=== PATIENT | female | born 1975 | race Hispanic/Latino ===

== ENCOUNTER 2019-05-07 10:32 | Emergency (ER) | payer OTHER, SELFPAY ==
[2019-05-07] MEDS ORDERED: Ketorolac Tromethamine 30 MG/ML VIAL ONE (11:12)
[2019-05-07 11:43] LABS: Bilirubin Negative (Negative); Blood, Urine Negative (Negative); Clarity Clear (Clear); Glucose, Urine (Dipstick) Normal (Negative); Leukocyte 250 Leu/uL (Negative); Nitrite Negative (Negative); Protein, Urine (Dipstick) 20 mg/dL (Neg-Trace); Urobilinogen Normal mg/dL (Less than 2); WBC/HPF 21-50 HPF (0-3)
[2019-05-07 11:45] LABS: Pregnancy Test - Urine (BHCG) Negative (Negative); Pregu Control Background? CLEAR/WHITE (CLR/WHITE); Pregu Control Bar Appear? YES (CONTROL BAR); Specific Gravity 1.031 (1.002-1.036)
[2019-05-07 11:48] LABS: BHCG - Serum Negative (NEGATIVE); Pregs Control Background? CLEAR/WHITE (CLR/WHITE); Pregs Control Bar Appear? YES (CONTROL BAR)
[2019-05-07 11:50] LABS: Bacteria/HPF 2+ HPF (None Seen)
[2019-05-07 11:52] LABS: Hemoglobin 12.1 g/dL (12.0-16.0); Mean Corpuscular HGB CONC 34.9 g/dL (32.0-36.0); Mean Corpuscular Hemoglobin 32.8 pg (27.0-31.0); Mean Corpuscular Volume 94.1 fL (78.0-98.0); Mean Platelet Volume 7.9 fL (7.4-10.4); Platelet Count 186 thou/uL (130-400); RBC Distribution Width 16.2 % (11.5-14.5); Red Blood Cell (RBC) Count 3.69 mill/uL (4.20-5.40); White Blood Cell (WBC) Count 5.1 thou/uL (4.8-10.8)
--- NOTE | 2019-05-07 12:11 | CT ---
Exam: Abdomen CT without contrast Pelvic CT without contrast HISTORY: Abdominal pain, x4 days COMPARISON: 04/17/2016 FINDINGS: Abdomen CT: Lung bases:Clear Heart size: Normal heart size. No significant pericardial fluid Aorta: Normal caliber. No perinephric fat stranding Solid organs: Grossly unremarkable. Limited evaluation due to lack of IV contrast Lymph nodes: No gastrohepatic, retrocrural or periportal lymphadenopathy Gallbladder: Unremarkable Mesentery: No mass, lymphadenopathy, free air or free fluid Kidneys: Bilaterally, no hydronephrosis, nephrolithiasis or perinephric fat stranding. Bilateral uret ers have a normal caliber. No hydroureter, periureteral fat stranding or ureterolithiasis. Alimentary canal: Limited evaluation due to technique. No evidence of bowel obstruction. Normal calib er appendix. Scattered fecal material in a nondistended, nondilated colon. Diverticulosis, without evidence of diverticulitis. Mucosal prominence of the sigmoid colon likely due to inadequate distenti on CT PELVIS: No mass, adenopathy, free air or free fluid. Uterus is unremarkable. There are ill-defined hypodensi ties in the left and right adnexa which may be associated with the ovaries likely representing dominant follicles measuring 2.3 on the right and 1.3 on the left. Consider pelvic ultrasound if clin ically warranted. Urinary bladder: Unremarkable. Osseous structures: No lytic or blastic lesions IMPRESSION: 1. No evidence of nephrolithiasis or obstructive uropathy 2. Normal caliber appendix. Diverticulosis. No evidence of diverticulitis 3. Mucosal prominence of the sigmoid colon, likely due to inadequate distention 4. Left and right adnexal hypodensities as above. Consider pelvic MRI if clinically warranted.
[2019-05-07 12:12] LABS: ALT (SGPT) Less than 7 U/L (8-55); AST (SGOT) 13 U/L (5-34); Alkaline Phosphatase 92 U/L (40-150); Anion Gap 12 mmol/L (10-20); BUN (Urea Nitrogen) 11 mg/dL (7.0-18.7); Bilirubin, Total 1.5 mg/dL (0.2-1.2); Calc. Creatinine Clearance 0 mL/min (70-130); Calcium 9.5 mg/dL (7.8-10.44); Carbon Dioxide 25 mmol/L (22-29); Chloride 105 mmol/L (98-107); Estimated GFR-MDRD Greater than 90; Globulin 3.1 g/dL (2.4-3.5); Glucose 99 mg/dL (70-105); Lipase 9 U/L (8-78); Potassium 3.9 mmol/L (3.5-5.1); Protein, Total 7.1 g/dL (6.0-8.3); Sodium 138 mmol/L (136-145)
[2019-05-07 12:15] LABS: Band 5 % (5-11); Eosinophils 2 % (0-10); Lymphocytes 54 % (21-51); MDiff Complete? YES; Monocytes 8 % (0-10); Neutrophil 20 % (42-75); Reactive Lymphocytes 11 % (0-10)
== END 2019-05-07 13:17 | disposition home or self-care (01) ==
LOC: ERS 10:32
DX: N30.00 Acute cystitis without hematuria (principal); I10 Essential (primary) hypertension; E78.00 Pure hypercholesterolemia, unspecified; E78.5 Hyperlipidemia, unspecified; F41.9 Anxiety disorder, unspecified; F32.9 Major depressive disorder, single episode, unspecified; F17.210 Nicotine dependence, cigarettes, uncomplicated
CPT/HCPCS: 74176; 80053; 81003; 81015; 81025; 83690; 84703; 85025; 96361; 96374; J1885

== ENCOUNTER 2019-06-12 09:31 | Emergency (ER) | payer SELFPAY ==
[2019-06-12] MEDS ORDERED: Ketorolac Tromethamine 30 MG/ML VIAL ONE (11:34)
[2019-06-12] MEDS ORDERED: Lidocaine 1% (PF) 30 ML VIAL ONE (11:34)
[2019-06-12] MEDS ORDERED: CEFAZOLIN 1 GM VIAL ONE ×2 (11:34→11:36)
[2019-06-12 11:54] LABS: Hemoglobin 9.1 g/dL (12.0-16.0); Mean Corpuscular HGB CONC 34.5 g/dL (32.0-36.0); Mean Corpuscular Hemoglobin 31.1 pg (27.0-31.0); Mean Corpuscular Volume 89.9 fL (78.0-98.0); Mean Platelet Volume 7.5 fL (7.4-10.4); Platelet Count 200 thou/uL (130-400); RBC Distribution Width 17.7 % (11.5-14.5); Red Blood Cell (RBC) Count 2.94 mill/uL (4.20-5.40); White Blood Cell (WBC) Count 5.4 thou/uL (4.8-10.8)
[2019-06-12 12:03] LABS: ALT (SGPT) 7 U/L (8-55); AST (SGOT) 16 U/L (5-34); Albumin 3.5 g/dL (3.5-5.0); Alkaline Phosphatase 81 U/L (40-110); Anion Gap 12 mmol/L (10-20); BUN (Urea Nitrogen) 12 mg/dL (7.0-18.7); Bilirubin, Total 1.4 mg/dL (0.2-1.2); Calc. Creatinine Clearance 0 mL/min (70-130); Calcium 8.8 mg/dL (7.8-10.44); Carbon Dioxide 23 mmol/L (22-29); Chloride 103 mmol/L (98-107); Estimated GFR-MDRD Greater than 90; Globulin 3.4 g/dL (2.4-3.5); Glucose 99 mg/dL (70-105); Potassium 3.7 mmol/L (3.5-5.1); Protein, Total 6.9 g/dL (6.0-8.3); Sodium 134 mmol/L (136-145)
[2019-06-12 12:11] LABS: Band 20 % (5-11); Eosinophils 2 % (0-10); Lymphocytes 58 % (21-51); MDiff Complete? YES; Monocytes 1 % (0-10); Neutrophil 18 % (42-75); Platelet Morphology Comment Appears Adequate; Polychromasia SLIGHT = 2-3 cells (100X) (0-2/hpf); Reactive Lymphocytes 1 % (0-10)
[2019-06-12] MEDS ORDERED: Morphine 4 MG/ML VIAL ONE (12:37)
== END 2019-06-12 17:10 | disposition home or self-care (01) ==
LOC: ERS 09:31
DX: L02.11 Cutaneous abscess of neck (principal); J45.909 Unspecified asthma, uncomplicated; E78.5 Hyperlipidemia, unspecified; E78.00 Pure hypercholesterolemia, unspecified; I10 Essential (primary) hypertension; F41.9 Anxiety disorder, unspecified; F32.9 Major depressive disorder, single episode, unspecified; F17.210 Nicotine dependence, cigarettes, uncomplicated
CPT/HCPCS: 10060; 36415; 80053; 85025; J0690; J1885; J2001; J2270

== ENCOUNTER 2019-06-16 15:06 | Observation (INO) | payer SELFPAY ==
[2019-06-16 16:31] LABS: Reticulocyte Count 4.3 % (0.5-1.5)
[2019-06-16 16:39] LABS: Iron 29 ug/dL (50-170); Iron Binding Capacity, Total 205 mcg/dL (265-497)
[2019-06-16 17:02] LABS: CKMB 1.4 ng/mL (0-6.6)
--- NOTE | 2019-06-16 17:07 | CT ---
CT BRAIN PERFORMED WITHOUT CONTRAST ENHANCEMENT: History: Symptomatic anemia, generalized weakness and syncope. FINDINGS: The ventricular and cisternal system is within normal limits. There are no signs of intracerebral hem orrhage or extraaxial fluid collections. The mastoid air cells and visualized sinuses are clear. IMPRESSION: No acute intracranial abnormalities. POS: [facility]
[2019-06-16] MEDS ORDERED: Acetaminophen 500 MG TAB ONE (19:29)
[2019-06-16] MEDS ORDERED: Senokot S 8.6-50 MG TAB PO PRN (19:31)
[2019-06-16] MEDS ORDERED: Sodium Chloride 0.9% 1,000 ML IV SCH (19:45)
[2019-06-16 20:01] LABS: Troponin I 0.053 ng/mL (< 0.028)
[2019-06-16 20:26] VITALS: BMI 41.1
[2019-06-16] MEDS: Nicotine 14 MG PATCH TD SCH (21:00)
[2019-06-16] MEDS ORDERED: Famotidine 20 MG TAB PO SCH (21:00)
[2019-06-16] MEDS: Pantoprazole 40 MG VIAL IVP SCH (21:00)
--- NOTE | 2019-06-16 21:24 | HP ---
PRIMARY CARE PHYSICIAN: None. CHIEF COMPLAINT: Wound evaluation. HISTORY OF PRESENT ILLNESS: Ms. Newton is a very pleasant 43-year-old female, who reported to the emergency room today in [place] for evaluation of wounds related to abscesses that she had looked at in the emergency room 4 days ago. She had one on the right posterior neck and one on the right anterior thigh. The one under neck had an I and D, and she was given antibiotics and sent home. She reports she has had a cough, fever, headache since the I and D procedure, and her family brought her back in for evaluation. The wound on her neck is healing nicely, and the wound on her thigh looks more of an ulceration and an abscess. While she was in [place], she was about to be discharged home when the ER physician did some routine blood work and found that her hemoglobin had dropped from 12.1 on 05/07/2019 to today when it was 8.0. She was also occult positive on the rectal exam, so she was sent over to [facility] for further evaluation and admission for symptomatic anemia. The ER doctor here han troponin, which was in the indeterminate range. The patient does report some dizziness, lightheadedness, and body aches. She was afebrile while here in the emergency room. The patient will be admitted to the floor for further workup for the anemia, elevated troponin, possible GI bleed. The patient recently returned from a bus trip to [place]. She was on the bus about 8 days total. REVIEW OF SYSTEMS: The patient reports fatigue. Reports fever at home. Reports weakness. Reports dizziness. Reports cough, headache. Reports body aches. All other systems are reviewed and are negative unless mentioned in the HPI. The patient denies GI bleeding. Denies melena. Reports that she did have a small amount of bright red blood when she wiped after bowel movement several days ago. She reports that she struggles with constipation and often struggles. PAST MEDICAL HISTORY: Pertinent for GERD, asthma, hepatomegaly, hyperlipidemia, hypertension. PAST SURGICAL HISTORY: Uterine ablation in 2013, right knee surgery. PSYCHIATRIC HISTORY: Anxiety, depression. SOCIAL HISTORY: Drinks socially every week. Denies drug use. Does smoke about a pack a day. FAMILY HISTORY: Cardiac disease on both sides of her family. ALLERGIES: NONE. CURRENT MEDICATIONS: None. PHYSICAL EXAMINATION: VITAL SIGNS: Blood pressure 126/71, pulse is 85, respirations 18, temperature is 99.6, and pO2 saturations are 97% on room air. CONSTITUTIONAL: The patient is alert and oriented to person, place, and time. She is in no apparent distress. HEENT: Head is atraumatic and normocephalic. Eyes; eyelids normal to inspection. Pupils are equally round and reactive to light. ENT; mouth exam is normal. Mucous membranes are moist. NECK: Normal range of motion. Trachea is midline. RESPIRATORY: Breath sounds are clear. Chest movement is symmetrical. CARDIOVASCULAR: Regular heart rate and rhythm. Heart sounds are normal. ABDOMEN: Nontender. Bowel sounds are heard. BACK: Normal range of motion. No CVA tenderness. Upper extremity, normal range of motion, radial pulses are normal. Lower extremity includes 1 cm ulceration to the right inner thigh. Normal range of motion. Motor strength is normal. Sensation intact. Pedal pulses are normal. NEUROLOGIC: The patient is oriented to person, place, and time. Speech is normal. SKIN: Warm, dry, normal in color. PSYCH: She is oriented to person, place, and time. Has a normal affect. DIAGNOSTIC DATA: EKG, normal sinus rhythm, beats per minute 78, ST segments normal, T-waves are normal. ASSESSMENT AND PLAN: 1. Anemia. The patient has had a 3-point drop in her hemoglobin in the last month. Guaiac was positive for blood in [place]. We will do serial hemoglobin and hematocrit. Add some Protonix b.i.d. Ask GI to consult. Iron and ferritin levels have been drawn. We will keep the patient n.p.o. after midnight. 2. Elevated troponin. We will trend. 3. Cough, fever, headache. We will order a flu test. 4. Healing abscesses with a skin ulceration on the right leg. The patient was given Rocephin and vancomycin at [place]. We will continue the Rocephin and we will titrate to p.o. once tolerated and these both appear to be healing. 5. Smoking cessation. Counseling has been given. 6. Gastrointestinal and deep venous thrombosis prophylaxis have been started. 7. Hospital course is dependent on clinical findings. Job ID: [id number]
[2019-06-16] MEDS: traMADol HCl 50 MG TAB PO PRN (21:27)
[2019-06-16 22:12] LABS: Hemoglobin 7.9 g/dL (12.0-16.0)
[2019-06-17] MEDS: Acetaminophen 325 MG TAB PO PRN ×2 (03:36→13:43)
[2019-06-17 04:38] LABS: ALT (SGPT) 7 U/L (8-55); AST (SGOT) 17 U/L (5-34); Albumin 3.1 g/dL (3.5-5.0); Alkaline Phosphatase 65 U/L (40-110); Anion Gap 11 mmol/L (10-20); BUN (Urea Nitrogen) 8 mg/dL (7.0-18.7); Bilirubin, Total 1.2 mg/dL (0.2-1.2); Calc. Creatinine Clearance 245 mL/min (70-130); Calcium 8.8 mg/dL (7.8-10.44); Carbon Dioxide 25 mmol/L (22-29); Chloride 104 mmol/L (98-107); Estimated GFR-MDRD Greater than 90; Globulin 3.2 g/dL (2.4-3.5); Glucose 87 mg/dL (70-105); Potassium 3.8 mmol/L (3.5-5.1); Protein, Total 6.3 g/dL (6.0-8.3); Sodium 136 mmol/L (136-145)
[2019-06-17 04:56] LABS: Band 5 % (5-11); Hemoglobin 8.1 g/dL (12.0-16.0); Lymphocytes 52 % (21-51); MDiff Complete? YES; Mean Corpuscular HGB CONC 34.4 g/dL (32.0-36.0); Mean Corpuscular Hemoglobin 31.1 pg (27.0-31.0); Mean Corpuscular Volume 90.4 fL (78.0-98.0); Mean Platelet Volume 7.6 fL (7.4-10.4); Monocytes 4 % (0-10); Neutrophil 39 % (42-75); Platelet Count 174 thou/uL (130-400); RBC Distribution Width 17.1 % (11.5-14.5); Red Blood Cell (RBC) Count 2.61 mill/uL (4.20-5.40); White Blood Cell (WBC) Count 3.6 thou/uL (4.8-10.8)
[2019-06-17] MEDS: Pantoprazole 40 MG VIAL IVP SCH ×2 (08:29→20:11)
[2019-06-17] MEDS: traMADol HCl 50 MG TAB PO PRN ×2 (08:37→13:43)
[2019-06-17] MEDS ORDERED: Enoxaparin Sodium 40 MG/0.4 ML SYRINGE SC SCH (09:00)
[2019-06-17] MEDS: cefTRIAXone\\ROCEPHIN 1 GM in Sodium Chloride 0.9% 100 ML IVPB SCH (13:43)
--- NOTE | 2019-06-17 13:45 | PDOC.HOSPP ---
- Subjective Encounter Date: 06/17/19 Encounter Time: 10:30 Subjective: no chest pain or sob no active bleeding now - Objective Vital Signs & Weight: Vital Signs (12 hours) Temp Pulse Pulse Pulse Resp BP BP 06/17/19 12:00 89 18 06/17/19 11:57 98 89 123/73 121/54 L 06/17/19 08:00 98.5 F 86 18 06/17/19 03:42 98.5 F 88 18 BP BP Pulse Ox 06/17/19 12:00 121/54 L 96 06/17/19 11:57 06/17/19 08:00 133/60 95 06/17/19 03:42 130/73 97 Weight Weight 247 lb I&O: 06/16/19 06/17/19 06/18/19 06:59 06:59 06:59 Intake Total 750 Output Total 800 Balance -50 Result Diagrams: 06/17/19 03:33 06/17/19 03:33 Hospitalist ROS - Medication Medications: Active Medications Generic Name Dose Route Start Last Admin Trade Name Judit PRN Reason Stop Dose Admin Acetaminophen 650 mg 06/16/19 19:25 06/17/19 03:36 Tylenol PO 650 mg Q6H PRN Administration Headache/Fever or Pain Nicotine 14 mg 06/16/19 21:00 06/16/19 21:00 Nicoderm Patch TD 14 mg Q24HR HOMERO Administration Pantoprazole Sodium 40 mg 06/16/19 21:00 06/17/19 08:29 Protonix IVP 40 mg Q12HR HOMERO Administration Tramadol HCl 50 mg 06/16/19 20:33 06/17/19 08:37 Ultram PO 50 mg Q4H PRN Administration Moderate Pain (4-6) - Exam General Appearance: NAD, awake alert Eye: PERRL, anicteric sclera ENT: no oropharyngeal lesions, moist mucosa Neck: supple, no JVD Heart: RRR, no murmur Respiratory: no wheezes, no rales Gastrointestinal: soft, non-tender, normal bowel sounds Extremities: no cyanosis, no edema Neurological: cranial nerve grossly intact, no focal deficits Psychiatric: normal affect, A&O x 3 Hosp A/P (1) Obesity Code(s): E66.9 - OBESITY, UNSPECIFIED Status: Acute (2) Acute blood loss anemia Code(s): D62 - ACUTE POSTHEMORRHAGIC ANEMIA Status: Acute (3) Dyslipidemia (high LDL; low HDL) Code(s): E78.4 - OTHER HYPERLIPIDEMIA * DO NOT USE * Status: Chronic (4) Essential hypertension Code(s): I10 - ESSENTIAL (PRIMARY) HYPERTENSION Status: Chronic - Plan has healing ulcer from prior abscess over thigh on protonix q12h for egd in am continue home meds when she is allowed to eat will f/u stress test in 08/2016 was +ve but pt refused cath then by , currently asymptomatic
--- NOTE | 2019-06-17 14:31 | CON ---
DATE OF CONSULTATION: 06/17/2019 REQUESTING PHYSICIAN: TRENTON Wyatt REASON FOR CONSULTATION: Anemia and heme-positive stool. HISTORY OF PRESENT ILLNESS: Vicki Newton is a 43-year-old woman with history of obesity, arthritis, asthma, and hypertension. She had a uterine ablation in 2013. She was admitted to the hospital yesterday with significant hemoglobin decline over the past month. Notably in recent weeks, she has been treated for multiple subcutaneous abscesses with incision and drainage and antibiotics. Labs drawn yesterday showed a significant decline over the past month from 12.1 to 8.0. She was subsequently transferred here from [place] for GI evaluation. FOBT was positive. The patient denies any abdominal pain, nausea, or vomiting. She will get intermittent mild constipation, but denies any issues with that at this time. Occasionally, she will have stools that are difficult to pass and will have a small amount of red blood in the stool, but this has not been going on very frequently. She has never undergone EGD or colonoscopy. NSAID use is rare. She denies any overt bleeding from anywhere, otherwise. No gross hematuria. No epistaxis. No melena. She was started here on Rocephin as well as Protonix 40 mg IV q.12 hours. REVIEW OF SYSTEMS: Full review of systems including constitutional, head, eyes, ears, nose, throat, GI, , cardiovascular, respiratory, musculoskeletal, and neurologic systems is negative except as noted in the HPI. PAST MEDICAL HISTORY: GERD, hypertension, hyperlipidemia, arthritis, asthma, obesity, depression and anxiety, uterine ablation in 2013, and right knee surgery. ALLERGIES: NO KNOWN DRUG ALLERGIES. OUTPATIENT MEDICATIONS: None. FAMILY HISTORY: Negative for GI malignancy. SOCIAL HISTORY: She smokes a pack of cigarettes per day. Alcohol use is social. PHYSICAL EXAMINATION: VITAL SIGNS: Temperature 98.5, pulse 86, blood pressure 133/60, and 95% oxygen saturation on room air. GENERAL: Obese 43-year-old woman sitting up in bed comfortably, in no distress. SKIN: No jaundice. No rashes were palpable. EYES: No scleral icterus. Extraocular movements intact. ENT: Mucous membranes moist. No oral lesions. LYMPH: No submandibular or supraclavicular lymphadenopathy. THYROID: Nontender to palpation. HEART: Regular rate and rhythm. LUNGS: Clear to auscultation bilaterally. ABDOMEN: Obese. Bowel sounds present. Soft, nontender to palpation. EXTREMITIES: No peripheral edema. VESSELS: Radial pulses 2+ bilaterally. NEURO: Cranial nerves II through XII intact bilaterally. No focal deficits. LABORATORY STUDIES: WBC 3.6; hemoglobin initially 7.9, currently stable at 8.1 without transfusion; platelets 174; MCV 90.4, reticulocytes elevated to 4.3. Sodium 136, potassium 3.8, BUN 8, creatinine 0.53, total bilirubin 1.2, alkaline phosphatase 65, AST 17, ALT 7, and albumin 3.1. INR 1.1. FOBT is positive. Flu swab negative. CK-MB normal at 1.4. Troponin 0.06. Ferritin 673, iron 29, TIBC 205, so overall iron studies are mixed. IMAGING STUDIES: Brain CT showed no acute processes. CT of the abdomen and pelvis from over a month ago on 05/07/2019 demonstrated some prominence in the area of the sigmoid colon, where this was felt to likely represent underdistention. There was diverticulosis. Normal-appearing appendix. ASSESSMENT AND PLAN: 1. Anemia, with hemoglobin declined from 12.1 to 8.0 over the past month, and no significant overt bleeding. 2. Heme-positive stool. 3. Rectal bleeding, intermittent, infrequent. The patient has certainly not had any overt bleeding to the degree that would explain her significant hemoglobin decline over the past month. Note, her iron studies are mixed and this is in the context of treatment with antibiotics for subcutaneous abscesses. Occult gastrointestinal bleeding lesion is certainly on the differential. I do recommend we proceed with esophagogastroduodenoscopy and colonoscopy for further evaluation. We will administer the bowel preparation this evening and plan for the procedure tomorrow. Thank you for the consultation. Please call anytime with questions or concerns. Job ID: [id number]
[2019-06-17] MEDS ORDERED: GoLYTELY 4,000 ml Bottle PO SCH (18:00)
[2019-06-17] MEDS: Nicotine 14 MG PATCH TD SCH (20:10)
[2019-06-18 07:36] LABS: INR-International Normal Ratio 1.1; PTT 31.9 SEC (22.9-36.1); Prothrombin Time 14.6 SEC (12.0-14.7)
[2019-06-18 07:51] LABS: Anion Gap 9 mmol/L (10-20); BUN (Urea Nitrogen) 6 mg/dL (7.0-18.7); Calc. Creatinine Clearance 236 mL/min (70-130); Calcium 8.9 mg/dL (7.8-10.44); Carbon Dioxide 29 mmol/L (22-29); Chloride 102 mmol/L (98-107); Estimated GFR-MDRD Greater than 90; Glucose 93 mg/dL (70-105); Potassium 3.6 mmol/L (3.5-5.1); Sodium 136 mmol/L (136-145)
[2019-06-18 08:25] LABS: Hemoglobin 7.8 g/dL (12.0-16.0); Mean Corpuscular HGB CONC 34.1 g/dL (32.0-36.0); Mean Corpuscular Hemoglobin 30.6 pg (27.0-31.0); Mean Corpuscular Volume 89.6 fL (78.0-98.0); Mean Platelet Volume 6.9 fL (7.4-10.4); Platelet Count 158 thou/uL (130-400); RBC Distribution Width 17.3 % (11.5-14.5); Red Blood Cell (RBC) Count 2.55 mill/uL (4.20-5.40); White Blood Cell (WBC) Count 3.5 thou/uL (4.8-10.8)
[2019-06-18 08:34] LABS: Band 8 % (5-11); Lymphocytes 67 % (21-51); MDiff Complete? YES; Monocytes 5 % (0-10); Neutrophil 20 % (42-75); Platelet Morphology Comment Appears Adequate; Polychromasia SLIGHT = 2-3 cells (100X) (0-2/hpf)
[2019-06-18] MEDS: Acetaminophen 325 MG TAB PO PRN (08:55)
[2019-06-18] MEDS: traMADol HCl 50 MG TAB PO PRN (08:55)
[2019-06-18] MEDS: Pantoprazole 40 MG VIAL IVP SCH (08:56)
[2019-06-18] MEDS ORDERED: Promethazine HCl 25 MG/ML VIAL SLOW IVP PRN (12:45)
[2019-06-18] MEDS ORDERED: Promethazine HCl 25 MG/ML VIAL IM PRN (12:45)
[2019-06-18] MEDS ORDERED: Ondansetron HCl/PF 4 MG/2 ML Vial IVP PRN (12:45)
[2019-06-18] MEDS ORDERED: Lidocaine 1% PF 5 ML VIAL ONE (15:29)
[2019-06-18] MEDS ORDERED: PROPOFOL 200 MG/20 ML VIAL ONE (15:29)
[2019-06-18 15:37] VITALS: TEMP 98
[2019-06-18] MEDS: cefTRIAXone\\ROCEPHIN 1 GM in Sodium Chloride 0.9% 100 ML IVPB SCH (15:47)
[2019-06-18 16:25] VITALS: BP 144/75
--- NOTE | 2019-06-18 19:07 | DIS ---
DATE OF ADMISSION: 06/16/2019 DATE OF DISCHARGE: 06/18/2019 DISCHARGE DISPOSITION: To home. PRIMARY DISCHARGE DIAGNOSES: Acute blood loss anemia, unclear etiology, likely source is menometrorrhagia. Upper and lower endoscopies have been negative for acute blood loss. SECONDARY DISCHARGE DIAGNOSES: Hypertension, dyslipidemia, obesity, healing ulcer over the thighs, resolving. PROCEDURES DONE DURING HOSPITALIZATION: CT brain done on the day of admission showed no acute abnormalities. This was done due to generalized weakness. Influenza A and B antigens were negative. Blood culture x1 is negative. Stool occult was positive. Hemoglobin and hematocrit on arrival were 8 and 24, platelet count 177, white count of 3.6, MCV 88, 67% lymphocytes and 20% neutrophils. Her previous hemoglobin and hematocrit were 12 and 34 on April 2019 with platelet count of 186. PT, INR, PTT within normal limits. Discharge BUN and creatinine 6 and 0.5, serum iron 29, TIBC 205, ferritin 673. Albumin is 3.1. DISCHARGE MEDICATIONS: 1. Ciprofloxacin 500 mg p.o. twice daily for another 5 days for her abscess/ ulcer over the thighs. 2. Protonix 40 mg p.o. daily. 3. Simvastatin 10 mg p.o. at bedtime. ALLERGIES: NO KNOWN DRUG ALLERGIES. DISCHARGE PLAN: The patient needs to find a primary care physician in the area and see in 1 week. She would also benefit from outpatient Heme-Onc consultation. BRIEF COURSE DURING HOSPITALIZATION: The patient initially got admitted on the with complaints of dizziness and generalized weakness. She was found to have had hemoglobin of 8 g, which had dropped from 12 in April of 2019. Stool occult was also positive. In view of this history, the patient was placed under observation on telemetry. She has had consultation with Dr. Fitz Lynn/dr. Stoll for Gastroenterology. She has had both upper and lower endoscopies done, which did not reveal any acute bleeding. She has had biopsies obtained from her stomach and duodenal area, which is pending at the time of discharge. The patient has reversal of neutrophil and lymphocyte on the differential count. Had a retic count of 4.3 with 1% recent nucleated red blood cells suggestive of possible bone marrow recovery. She has remained hemodynamically stable during her stay here, ambulating as well. DOUG with reflex is pending, which has been drawn today. This needs to be followed up with her primary care physician in the outpatient setting. The patient has been advised to search and find a primary care physician in the area to follow up in 1 week with the blood counts and likely she will need outpatient consultation with boot trimmer/oncologist. She also needs outpatient consultation with her OB/ [employer] in view of irregular periods with prior uterine ablation done for menorrhagia. She gave a history of heavy bleeding for 2 days with clots and her cycle being irregular sometimes 2, sometimes lasting 4 months in between cycles. She is currently hemodynamically stable and will be discharged for further outpatient workup. Job ID: [id number] [facility] SYSTEM[facility]ie
--- NOTE | 2019-06-19 08:48 | OP ---
DATE OF PROCEDURE: 06/18/2019 PROCEDURES PERFORMED: EGD and colonoscopy. PREPROCEDURE DIAGNOSES: 1. Anemia with heme-positive stool. 2. Significant use of Aleve 2 to 3 times per day. ANESTHESIA: TIVA. POSTPROCEDURE DIAGNOSES: 1. Normal EGD. Biopsies were taken from the stomach for H pylori and from the small bowel to rule out celiac. 2. Colonoscopy normal except for diverticulosis with no stigmata of bleeding. RECOMMENDATIONS: 1. High-fiber diet. 2. NSAID avoidance. 3. Await biopsies. 4. Consider further evaluation for anemia consider anemia of chronic disease as both the TIBC and the iron are quite low and the ferritin is quite high. 5. We would discontinue NSAIDs. 6. We would check a B12 and a folate. 7. If the patient continues to have anemia, consider evaluation of small bowel with imaging personally and then possible capsule endoscopy as an outpatient. A CAT scan of the abdomen and pelvis notably was negative on 05/15/2019, stone protocol exam, however. DESCRIPTION OF PROCEDURE: After the patient was informed of the risks, benefits, and possible complications of endoscopy including perforation, reaction to medication, and aspiration, informed consent was obtained. The patient was brought to endoscopy suite, where she was sedated in gradual fashion. Once she was comfortable, bite block was placed inside the orifice. Then, the endoscope was advanced through the esophagus, stomach, and second and third portion of the duodenum. There was no active bleeding seen. There was no evidence of duodenitis or erosions. There was no scalloping of duodenal folds. Biopsies were taken to rule out celiac in light of the heme-positive stool. The remainder of the duodenum was normal. The stomach was normal except for mild nodularity in the antrum. Biopsies were taken for H pylori. Retroflexed views in the stomach had been normal. There was no evidence of distensibility of the stomach. The esophagus was normal. Retroflexed views in the stomach had been normal . After the EGD was complete, the patient returned to the room and a rectal examination was performed, which was normal. The endoscope was advanced to the anal canal through the colon. The cecum was identified by the ileocecal valve and appendiceal orifice. The terminal ileum was entered for a short distance and found to be normal. The scope was then slowly removed. There was good visualization of the mucosa. The prep was fair little gas bubbles out and clear bile. Once this was done, we got a pretty good look at the colon. There were no masses, lesions, polyps, AVMs, or active bleeding. Retroflexed views showed some small internal hemorrhoids. The scope was removed. The patient tolerated the procedure well. There were no complications. Job ID: [id number]
[2019-06-19 11:36] LABS: ANA Symphony (Qualitative) Negative (Negative); ANA Symphony (Quantitative) 0.1 Ratio (< 0.7 Negative); dsDNA IgG Antibody 0.5 IU/mL (<10 Negative)
--- NOTE | 2019-06-22 14:42 | EKG ---
Test Reason : ANEMIA Blood Pressure : / mmHG Vent. Rate : 078 BPM Atrial Rate : 078 BPM P-R Int : 188 ms QRS Dur : 096 ms QT Int : 398 ms P-R-T Axes : 047 -20 018 degrees QTc Int : 453 ms Normal sinus rhythm Septal infarct , age undetermined Abnormal ECG Confirmed by ESMER SUNG DO ([id number]), news editor VICTORINA AYON ([id number]) on 06/22/2019 2:42:05 PM Referred By: ANA LILIA Confirmed By:ESMER SUNG DO
== END 2019-06-18 18:10 | disposition home or self-care (01) ==
LOC: ERS 15:06 → 2SW 18:09
PROVIDERS: ADMIT Internal Medicine; ATTEND Internal Medicine
PROC: 0DB58ZX Excision of Esophagus, Via Natural or Artificial Opening Endoscopic, Diagnostic (ICD-10-PCS; principal; 2019-06-18)
PROC: 0DJD8ZZ Inspection of Lower Intestinal Tract, Via Natural or Artificial Opening Endoscopic (ICD-10-PCS; 2019-06-18)
DX: D62 Acute posthemorrhagic anemia (principal); K57.90 Diverticulosis of intestine, part unspecified, without perforation or abscess without bleeding; K64.8 Other hemorrhoids; K21.9 Gastro-esophageal reflux disease without esophagitis; I10 Essential (primary) hypertension; D72.820 Lymphocytosis (symptomatic); M19.90 Unspecified osteoarthritis, unspecified site; F17.210 Nicotine dependence, cigarettes, uncomplicated; E66.9 Obesity, unspecified; Z68.41 Body mass index [BMI] 40.0-44.9, adult
CPT/HCPCS: 36415; 70450; 80048; 80053; 82553; 82728; 83540; 83550; 84484; 85025; 85046; 85610; 85730; 86038; 86225; 87804; 88305; 88312; 93005; 96365; 96375; 96376; C9113; G0378; J0696; J2001; J2704; J3490

== ENCOUNTER 2019-10-22 12:03 | Emergency (ER) | payer SELFPAY | END 2019-10-22 13:55 | disposition home or self-care (01) | LOC: ERS 12:03 | DX: H00.031 Abscess of right upper eyelid (principal); L03.114 Cellulitis of left upper limb; J45.909 Unspecified asthma, uncomplicated; E78.5 Hyperlipidemia, unspecified; I10 Essential (primary) hypertension; F41.9 Anxiety disorder, unspecified; F17.210 Nicotine dependence, cigarettes, uncomplicated | CPT/HCPCS: 99283 ==